=== PATIENT | female | born 1980 | race Hispanic/Latino ===

== ENCOUNTER → 2017-12-16 | Emergency (ER) | payer BC ==
[~2017-12-16] VITALS: Ht 165.1 cm; Wt 99.8 kg
[~2017-12-16] MED LIST: IBUPROFEN 600 MG TAB PO STA; TRAMADOL HCL 50 MG TAB PO ONE
== END | disposition home or self-care (01) ==
LOC: ER 00:40
DX: S80.02XA Contusion of left knee, initial encounter (principal); S76.112A Strain of left quadriceps muscle, fascia and tendon, initial encounter; W22.09XA Striking against other stationary object, initial encounter; Y93.H2 Activity, gardening and landscaping; Y92.007 Garden or yard of unspecified non-institutional (private) residence as the place of occurrence of the external cause
CPT/HCPCS: 81025; 99283

== ENCOUNTER → 2020-11-17 | Outpatient (CLI) | payer OTHER ==
[~2020-11-17] MED LIST changes: +COVID-19 VACC, MRNA(MODERNA)/PF 100 MCG/0.5 ML VIAL IM ONE; -IBUPROFEN 600 MG TAB PO STA; -TRAMADOL HCL 50 MG TAB PO ONE
== END ==
LOC: VACCPMC 13:06
DX: Z23 Encounter for immunization (principal); Z20.828 Contact with and (suspected) exposure to other viral communicable diseases

== ENCOUNTER → 2020-12-22 | Outpatient (CLI) | payer OTHER | END | DRG 951 | LOC: VACCPMC 10:51 | DX: Z23 Encounter for immunization (principal); Z20.822 Contact with and (suspected) exposure to COVID-19 | CPT/HCPCS: 0012A; 91301 ==

== ENCOUNTER 2021-04-27 20:14 | Emergency (ER) | payer BC, OTHER ==
[~2021-04-27] VITALS: Ht 157.5 cm; Wt 106.1 kg
[2021-04-27] MEDS ORDERED: SODIUM CHLORIDE 0.9% 1000ML 1,000 ML IV STA (20:35)
[2021-04-27] MEDS ORDERED: FAMOTIDINE 20 MG/2 ML VIAL IV ONE ×2 (20:45→21:06)
[2021-04-27] MEDS ORDERED: ONDANSETRON HCL INJ 2MG/ML 2ML 2 MG/ML VIAL IV ONE (20:45)
[2021-04-27] MEDS ORDERED: KETOROLAC TROMETHAMINE 30 MG/ML VIAL IV ONE (20:45)
[2021-04-27] MEDS ORDERED: ONDANSETRON HCL INJ 2MG/ML 2ML 2 MG/ML VIAL ONE (21:05)
[2021-04-27] MEDS ORDERED: KETOROLAC TROMETHAMINE 30 MG/ML VIAL ONE (21:05)
[2021-04-27] MEDS ORDERED: SODIUM CHLORIDE 0.9% 1000ML 1,000 ML ONE (21:06)
[2021-04-27] MEDS ORDERED: SODIUM CHLORIDE 0.9% 50ML 50 ML ONE ×2 (21:06→23:54)
[2021-04-27] MEDS ORDERED: IOPAMIDOL 370 MG/ML 200 ML INFUS..BTL INJ ONE (21:06)
[2021-04-27] MEDS ORDERED: CEFTRIAXONE 1 GM VIAL IV ONE (23:30)
[2021-04-27] MEDS ORDERED: HYDROCODONE/APAP 5MG-325MG TAB PO ONE (23:30)
[2021-04-27] MEDS ORDERED: CEFTRIAXONE 1 GM in SODIUM CHLORIDE 0.9% 50ML 50 ML IV ONE (23:45)
[2021-04-27] MEDS ORDERED: HYDROCODONE/APAP 5MG-325MG TAB ONE (23:54)
[2021-04-27] MEDS ORDERED: CEFTRIAXONE 1 GM VIAL ONE (23:55)
[2021-04-28] MEDS ORDERED: ACETAMINOPHEN500 MG PO (00:49)
[2021-04-28] MEDS ORDERED: ULTRAM 50MG50 MG PO (00:49)
[2021-04-28 01:12] VITALS: BP 130/73
== END 2021-04-28 00:35 | disposition home or self-care (01) ==
LOC: FSED 20:30
DX: R10.2 Pelvic and perineal pain (principal); D72.829 Elevated white blood cell count, unspecified
CPT/HCPCS: 74177; 76856; 81003; 81025; 96374; 96375; 96376; 99284; J0696; J1885; J2405; J7030; Q9967

== ENCOUNTER → 2021-07-20 | Outpatient (CLI) | payer OTHER ==
[~2021-07-20] MED LIST changes: +ACETAMINOPHEN500 MG PO; -COVID-19 VACC, MRNA(MODERNA)/PF 100 MCG/0.5 ML VIAL IM ONE; +ULTRAM 50MG50 MG PO
[2021-07-20 09:50] LABS: BASOPHILS # (AUTO) 0.1 (0.0-0.1); BASOPHILS % 0.6 % (0.0-1.0); EOSINOPHILS # (AUTO) 0.9 (0.0-0.4); EOSINOPHILS % 8.1 % (0.0-6.0); HEMATOCRIT 39.7 % (34.2-44.1); HEMOGLOBIN 12.8 g/dL (12.0-16.0); LYMPHOCYTES # (AUTO) 3.1 (1.0-3.2); LYMPHOCYTES % 28.1 % (18.0-39.1); MEAN CORPUSCULAR HEMOGLOBIN 28.1 pg (28-32); MEAN CORPUSCULAR HGB CONC 32.2 g/dL (31-35); MEAN CORPUSCULAR VOLUME 87.3 fL (81-99); MONOCYTES # (AUTO) 0.6 (0.2-0.8); MONOCYTES % 5.1 % (4.4-11.3); NEUTROPHILS # (AUTO) 6.5 (2.1-6.9); NEUTROPHILS % 57.7 % (38.7-80.0); PLATELET COUNT 294 x10e3/uL (140-360); RED BLOOD COUNT 4.55 x10e6/uL (3.6-5.1); RED CELL DISTRIBUTION WIDTH 13.6 % (11.7-14.4)
[2021-07-20 10:26] LABS: ALBUMIN 3.9 g/dL (3.5-5.0); ALBUMIN/GLOBULIN RATIO 1.1 (0.8-2.0); ANION GAP 15.2 mmol/L (8-16); CALCIUM 9.1 mg/dL (8.4-10.2); CREATININE, SERUM 0.62 mg/dL (0.57-1.11); POTASSIUM 4.2 mmol/L (3.5-5.1)
[2021-07-20 11:43] LABS: CHOL/HDL RATIO 4.2 (3.0-3.6)
[2021-07-20 12:05] LABS: FERRITIN 29.85 ng/mL (4.63-204.00); THYROID STIMULATING HORMONE 1.3 uIU/mL (0.350-4.940)
== END ==
LOC: LAB 09:14
PROVIDERS: ATTEND Internal Medicine
DX: R73.09 Other abnormal glucose (principal); E78.1 Pure hyperglyceridemia; N18.1 Chronic kidney disease, stage 1; I10 Essential (primary) hypertension; D50.9 Iron deficiency anemia, unspecified; E55.9 Vitamin D deficiency, unspecified; E53.8 Deficiency of other specified B group vitamins; E66.01 Morbid (severe) obesity due to excess calories
CPT/HCPCS: 36415; 80053; 80061; 82044; 82570; 82607; 82728; 83036; 83540; 84443; 84466; 85025

== ENCOUNTER → 2024-08-11 | Day surgery (SDC) | payer BC ==
[~2024-08-11] MED LIST changes: +DEXMEDETOMIDINE HCL 200 MCG/2 ML VIAL ONE; +LIDOCAINE HCL 2% LOCAL INJ 5 ML SDV VIAL INJ ONE; +PROPOFOL IV EMULSION 10 MG/ML 20 ML VIAL ONE; +VITAMIN B-121000 MCG PO
[2024-08-11 08:30] VITALS: BP 120/68; PULSE 73; RESP 15; O2SAT 98
== END | disposition home or self-care (01) ==
LOC: ENDO 06:37
PROVIDERS: ATTEND Surgery
DX: K21.9 Gastro-esophageal reflux disease without esophagitis (principal); K29.50 Unspecified chronic gastritis without bleeding; B96.81 Helicobacter pylori [H. pylori] as the cause of diseases classified elsewhere; K44.9 Diaphragmatic hernia without obstruction or gangrene; K20.90 Esophagitis, unspecified without bleeding; Z71.3 Dietary counseling and surveillance; D64.9 Anemia, unspecified; I10 Essential (primary) hypertension; E03.8 Other specified hypothyroidism; E66.01 Morbid (severe) obesity due to excess calories; E11.9 Type 2 diabetes mellitus without complications; Z68.41 Body mass index [BMI] 40.0-44.9, adult
CPT/HCPCS: 43239; 81025; 88305; 88342; J2001; J2704; 43235

== ENCOUNTER 2024-10-06 07:02 | Observation (INO) | payer BC ==
[2024-09-30 11:04] LABS: BASOPHILS # (AUTO) 0.1 (0.0-0.1); BASOPHILS % 0.5 % (0.0-1.0); EOSINOPHILS # (AUTO) 0.1 (0.0-0.4); EOSINOPHILS % 0.9 % (0.0-6.0); HEMATOCRIT 40.3 % (34.2-44.1); HEMOGLOBIN 12.9 g/dL (12.0-16.0); LYMPHOCYTES # (AUTO) 3.5 (1.0-3.2); MEAN CORPUSCULAR HEMOGLOBIN 29.1 pg (28-32); MONOCYTES # (AUTO) 0.5 (0.2-0.8); MONOCYTES % 4.5 % (4.4-11.3); NEUTROPHILS # (AUTO) 6.7 (2.1-6.9); NEUTROPHILS % 61.7 % (38.7-80.0); PLATELET COUNT 273 x10e3/uL (140-360); RED BLOOD COUNT 4.43 x10e6/uL (3.6-5.1); RED CELL DISTRIBUTION WIDTH 13.2 % (11.7-14.4); WHITE BLOOD COUNT 10.78 x10e3/uL (4.8-10.8)
[~2024-10-06] VITALS: Ht 154.9 cm; Wt 103.0 kg
[~2024-10-06 07:02] MED LIST changes: -DEXMEDETOMIDINE HCL 200 MCG/2 ML VIAL ONE; -LIDOCAINE HCL 2% LOCAL INJ 5 ML SDV VIAL INJ ONE; -PROPOFOL IV EMULSION 10 MG/ML 20 ML VIAL ONE
[2024-10-06] MEDS ORDERED: LACTATED RINGER'S 1,000 ML ONE (07:27)
[2024-10-06] MEDS ORDERED: CEFAZOLIN SODIUM 2 GM ONE (07:27)
[2024-10-06] MEDS ORDERED: PROPOFOL IV EMULSION 10 MG/ML 20 ML VIAL ONE (07:37)
[2024-10-06] MEDS ORDERED: ROCURONIUM BROMIDE 1 ML IV ONE ×2 (07:38→08:50)
[2024-10-06] MEDS ORDERED: LIDOCAINE HCL 2% LOCAL INJ 5 ML SDV VIAL INJ ONE (07:38)
[2024-10-06] MEDS ORDERED: SUCCINYLCHOLINE CHLORIDE 20 MG/ML 10ML VIAL ONE (07:38)
[2024-10-06] MEDS ORDERED: DEXAMETHASONE SOD PHOS INJ 4 MG/ML SDV ONE (07:38)
[2024-10-06] MEDS ORDERED: FENTANYL CITRATE/PF 100MCG/2 ML INJ ONE ×2 (07:39→08:23)
[2024-10-06] MEDS ORDERED: FIBRIN FROZEN 2 ML SPRAY.GEL TOP ONE (07:44)
[2024-10-06] MEDS ORDERED: ONDANSETRON HCL INJ 2MG/ML 2ML 2 MG/ML VIAL IV PRN (07:45)
[2024-10-06] MEDS ORDERED: BUPIVACAINE 0.25% 30ML SDV ONE (07:47)
[2024-10-06] MEDS ORDERED: ACETAMINOPHEN 1000 MG/100 ML 100 ML IV ONE (08:03)
[2024-10-06] MEDS ORDERED: METOCLOPRAMIDE HCL 10 MG/2ML VIAL ONE (08:19)
[2024-10-06] MEDS ORDERED: ESMOLOL HCL 100MG/10ML 10 MG/ML VIAL ONE (08:57)
[2024-10-06] MEDS ORDERED: SCOPOLAMINE 1 MG PATCH ONE (09:56)
[2024-10-06] MEDS: SCOPOLAMINE 1 MG PATCH TOP SCH (10:00)
[2024-10-06] MEDS: HYDROMORPHONE 1MG/1ML INJ ONE (10:22)
[2024-10-06] MEDS: ONDANSETRON HCL INJ 2MG/ML 2ML 2 MG/ML VIAL ONE (10:22)
[2024-10-06 11:37] VITALS: BP 140/83; PULSE 82; RESP 18; TEMP 98; O2SAT 95
[2024-10-06] MEDS: Morphine 2mg Syringe 2 MG/ML SYR IV PRN (12:00)
[2024-10-06 12:58] LABS: BASOPHILS % 0.2 % (0.0-1.0); HEMATOCRIT 42.7 % (34.2-44.1); HEMOGLOBIN 13.7 g/dL (12.0-16.0); LYMPHOCYTES # (AUTO) 1.1 (1.0-3.2); MEAN CORPUSCULAR HEMOGLOBIN 29.2 pg (28-32); MEAN CORPUSCULAR HGB CONC 32.1 g/dL (31-35); MONOCYTES # (AUTO) 0.4 (0.2-0.8); NEUTROPHILS # (AUTO) 20.3 (2.1-6.9); NEUTROPHILS % 92.2 % (38.7-80.0); PLATELET COUNT 283 x10e3/uL (140-360); RED BLOOD COUNT 4.69 x10e6/uL (3.6-5.1); RED CELL DISTRIBUTION WIDTH 13.3 % (11.7-14.4); WHITE BLOOD COUNT 22.07 x10e3/uL (4.8-10.8)
[2024-10-06 13:50] VITALS: PULSE 81; RESP 18; O2SAT 95
[2024-10-06] MEDS: HYDROCODONE/APAP 7.5MG-325MG 1 EA TAB PO PRN (15:26)
[2024-10-06] MEDS: SODIUM CHLORIDE 0.9% 1000ML 1,000 ML IV SCH (15:57)
[2024-10-06 18:17] LABS: BASOPHILS % (MANUAL) 1 % (0-1.5); LYMPHOCYTES % (MANUAL) 2 % (19-48); MONOCYTES % (MANUAL) 2 % (3.4-9.0); NEUTROPHILS % (MANUAL) 94 % (40-74); REACTIVE LYMPHOCYTES 1
[2024-10-06 18:18] LABS: PLATELET ESTIMATE ADEQUATE; PLATELET MORPHOLOGY COMMENT NORMAL; RBC MORPHOLOGY COMMENT NORMAL
[2024-10-06 19:51] VITALS: BP 142/82; PULSE 91; RESP 18; TEMP 100.7; O2SAT 95
[2024-10-06 19:57] VITALS: PULSE 90; RESP 18; O2SAT 95
[2024-10-06] MEDS: ENOXAPARIN SOD INJ 40 MG/0.4 ML SYR SC SCH (21:47)
[2024-10-06 23:19] VITALS: BP 131/77; PULSE 81; RESP 18; TEMP 98.7; O2SAT 94
[2024-10-07 02:18] VITALS: BP 131/77; PULSE 81; RESP 18; TEMP 98.7; O2SAT 94
[2024-10-07 03:39] VITALS: BP 133/88; PULSE 71; RESP 18; TEMP 99.1; O2SAT 95
[2024-10-07 06:10] LABS: BASOPHILS % 0.1 % (0.0-1.0); HEMATOCRIT 38.1 % (34.2-44.1); HEMOGLOBIN 12.6 g/dL (12.0-16.0); LYMPHOCYTES # (AUTO) 1.8 (1.0-3.2); LYMPHOCYTES % 11.2 % (18.0-39.1); MEAN CORPUSCULAR HGB CONC 33.1 g/dL (31-35); MEAN CORPUSCULAR VOLUME 87.6 fL (81-99); MONOCYTES % 6.5 % (4.4-11.3); NEUTROPHILS % 81.6 % (38.7-80.0); PLATELET COUNT 288 x10e3/uL (140-360); RED BLOOD COUNT 4.35 x10e6/uL (3.6-5.1); RED CELL DISTRIBUTION WIDTH 13.3 % (11.7-14.4); WHITE BLOOD COUNT 15.88 x10e3/uL (4.8-10.8)
[2024-10-07 06:33] LABS: ALBUMIN 3.7 g/dL (3.5-5.0); ANION GAP 14.8 mmol/L (8-16); BILIRUBIN,TOTAL 0.5 mg/dL (0.2-1.2); CALCIUM 9.3 mg/dL (8.4-10.2); CREATININE, SERUM 0.73 mg/dL (0.57-1.11); MAGNESIUM 1.9 MG/DL (1.3-2.1); PHOSPHORUS 2.6 MG/DL (2.3-4.7); POTASSIUM 4.8 mmol/L (3.5-5.1); TOTAL PROTEIN 7.5 g/dL (6.5-8.1)
[2024-10-07 07:27] VITALS: PULSE 88; RESP 18; O2SAT 96
[2024-10-07 08:58] VITALS: BP 145/84; PULSE 75; RESP 20; TEMP 98.4; O2SAT 95
[2024-10-09] MEDS ORDERED: SCOPOLAMINE 1 MG PATCH TOP SCH (10:00)
== END 2024-10-07 09:08 | disposition home or self-care (01) ==
LOC: OR 07:02 → PACU V 10:25 → MED/SURG3 11:36
PROVIDERS: ADMIT Internal Medicine; ATTEND Internal Medicine
DX: E66.01 Morbid (severe) obesity due to excess calories (principal); Z68.41 Body mass index [BMI] 40.0-44.9, adult; K75.81 Nonalcoholic steatohepatitis (NASH); K44.9 Diaphragmatic hernia without obstruction or gangrene; K21.9 Gastro-esophageal reflux disease without esophagitis; I10 Essential (primary) hypertension; K66.0 Peritoneal adhesions (postprocedural) (postinfection); G89.29 Other chronic pain; Z82.49 Family history of ischemic heart disease and other diseases of the circulatory system
CPT/HCPCS: 36415 ×3; 43281; 43644; 47379; 80053; 81025; 83735; 84100; 85025 ×3; 88307; 88313; 94799 ×2; G0378 ×2; J0131; J0330; J1100; J1171; J1650 ×2; J2003; J2270 ×2; J2405; J2704; J2765; J3010; J7030; J7121